=== PATIENT | male | born 1985 | race Two or more races ===

== ENCOUNTER 2019-12-25 03:33 | Emergency (ER) | payer SELFPAY ==
[~2019-12-25] VITALS: Ht 177.8 cm; Wt 81.6 kg
--- NOTE | 2019-12-25 03:39 | NUR ---
CALLED PT TO BE TRIAGED, NOT IN WAITING ROOM
--- NOTE | 2019-12-25 03:52 | NUR ---
CALLED PT TO BE TRIAGED, NOT IN WAITING ROOM
[2019-12-25 04:04] VITALS: BP 109/91
--- NOTE | 2019-12-25 04:23 | NUR ---
Patient received prescription and explained prescriptions to patient.
--- NOTE | 2019-12-25 04:25 | NUR ---
Patient discharged to home in stable condition. Written and verbal after care instructions given. Patient verbalizes understanding of instruction.
== END 2019-12-25 04:25 | disposition home or self-care (01) ==
LOC: ER 03:39
DX: L20.9 Atopic dermatitis, unspecified (principal)